=== PATIENT | male | born 1990 | race Caucasian/White ===

== ENCOUNTER 2017-02-15 10:50 | Day surgery (SDC) | payer OTHER ==
[~2017-02-15 10:50] MED LIST: Buffered Lidocaine 0.9% SYRIN* 5 ML/SYR SYRINGE INTRADERM ONE
[2017-02-15] MEDS ORDERED: Buffered Lidocaine 0.9% SYRIN* 5 ML/SYR SYRINGE ONE (11:01)
[2017-02-15] MEDS ORDERED: ceFAZolin 2 GM PREMIX(*) 2 GM/50 ML BAG IVPB ONE (11:02)
[2017-02-15] MEDS ORDERED: Lidocaine 1% MPF wEPI 200,000* 30 ML SDV ONE (14:08)
[2017-02-15] MEDS ORDERED: Bupivacaine 0.25% EPI 200,000* 30 ML SDV ONE (14:09)
[2017-02-15] MEDS ORDERED: Mineral Oil Sterile, TOPICAL* 25 ML BTL ONE (14:09)
[2017-02-15] MEDS ORDERED: Methylene Blue 1% (ANTIDOTE)* 10 MG/ML 1 ML SDV VIAL IVPB ONE (14:09)
[2017-02-15] MEDS ORDERED: fentaNYL* 50 MCG/ML 2 ML VIAL (100 MCG VIAL) ONE (14:22)
[2017-02-15] MEDS ORDERED: Midazolam* 1 MG/ML 5 ML VIAL (5 MG) ONE (14:27)
[2017-02-15] MEDS ORDERED: Propofol* 10 MG/ML 20 ML BTL IV PUSH ONE ×2 (16:15→16:19)
[2017-02-15] MEDS ORDERED: Lidocaine 2% PF * 5 ML VIAL ONE (16:15)
[2017-02-15 18:00] VITALS: BP 90/57
--- NOTE | 2017-02-16 13:53 | OP ---
CC: Dr. Palacios * DATE OF OPERATION: 02/15/17 - [facility] DATE OF : 89 SURGEON: Paul Montoya MD., and Dimitrios Palacios MD. SCAFFOLD WORKER: Mallika Cleaning NP. ANESTHESIOLOGIST: Kwaku Koch DO ANESTHESIA: Local, MAC. PRE-OP DIAGNOSIS: Mass, right parietal scalp. POST-OP DIAGNOSIS: Bony mass, right calvarium. OPERATIVE PROCEDURE: ESTIMATED BLOOD LOSS: Minimal. SPECIMENS: Bony mass, right calvarium. DRAINS: None. COMPLICATIONS: None. INDICATIONS FOR OPERATION: The patient is a 26-year-old white male who complains of a greater than 5-year history of a firm lump on his right parietal scalp area. Denies any recent changes in the lump. A CT scan was performed at [facility] on 02/21/14, and the report read no intracranial abnormalities, calcified superficial scalp nodule without underlying skull abnormalities. After discussing the treatment alternatives, possible benefits, and risks in detail with the patient, he elected to proceed at this time with excision of the mass. DESCRIPTION OF PROCEDURE: The patient was taken to the operating room and placed in the supine position. Hair on the right parietal scalp immediately overlying the mass was clipped. The area was prepped with Betadine solution and draped sterilely. The scalp was locally infiltrated around the area with 0.125% Marcaine, 0.5% lidocaine with epinephrine 1:200,000 solution. Linear incision was made through the scalp overlying the mass down through the galea. A hard, white, fixed mass was identified and subperiosteal dissection performed to expose the entire mass. The base of the mass was more narrow than the widest extent of the mass and periosteal elevators could be placed under the edges of the mass in these areas, but the mass was firmly fixed to the outer table of the calvarium. An intraoperative neurosurgical consultation was obtained with Dr. Dimitrios Palacios. He reviewed the CT scan and examined the area through the wound, and he was in agreement with removing the bony mass by using an osteotome. An elevator was placed under overriding edges of the mass anteriorly and was tapped lightly with a mallet and the majority of the mass was able to be removed in this manner in one piece. Specimen was sent in formalin for routine pathologic study. There was, however, a remaining protruding area of cortical and cancellous bone protruding above the normal appearing calvarium and Dr. Palacios scrubbed into the case at this point and burred this down with an oval shaped keyon using the [employer] power drill, using saline irrigation to control heat. This was burred down to make the area smooth in contour relative to the normal surrounding calvarium. There were a few small punctate areas of bleeding from the bone following this and this was controlled with bone wax. Dr. Palacios then scrubbed out of the case. Hemostasis was noted to be excellent. The wound was irrigated with copious saline solution. The scalp was then closed in multiple layers using interrupted sutures of 3-0 Vicryl in the galea. The scalp was then closed with running 4-0 Prolene. The area was then dressed with Xeroform gauze, fluff gauze, and then a circumferential head wrap dressing applied and secured with tape. The patient tolerated the procedure well. There were no complications. All counts were reported as correct at the end of the procedure. The patient was taken to the recovery area in stable postoperative condition. [id number]/[facility] #: [id number] [facility]CTORS HOSPITALMahesh
== END 2017-02-15 18:09 | disposition home or self-care (01) ==
LOC: OR 10:50
PROVIDERS: ATTEND Plastic Surgery
DX: M85.08 Fibrous dysplasia (monostotic), other site (principal); F17.210 Nicotine dependence, cigarettes, uncomplicated
CPT/HCPCS: 88305; 88311; A9270-GY; J0690; J2001; J2250; J2704; J3010

== ENCOUNTER 2019-10-20 11:53 | Inpatient (IN) | payer OTHER ==
[2019-10-20] MEDS ORDERED: Lidocaine 1% INJ* 10 MG/ML 30 ML SDV INJ ONE (11:55)
--- NOTE | 2019-10-20 12:02 | ED ---
Respiratory - HPI Summary HPI Summary: Patient is a 29 y/o M presenting to the ED for a chief complaint of right-sided chest pain and shortness of breath that began on 10/18/19. Patient states that on 10/18/19, he woke up feeling uncomfortable and went to walk to a coffee shop. While walking to the coffee shop, the chest pain worsened. Patient relaxed during the day after returning home from the coffee shop. Patient played soccer on 10/18/19 without any complaints. He denies any trauma or cough. Patient was seen at [facility] and had a chest x-ray that showed a right-sided pneumothorax so he was sent to [facility] for further assessment. Patient admits tobacco use. - History of Current Complaint Chief Complaint: EDShortnessOfBreath Stated Complaint: CHEST PAIN Time Seen by Provider: 10/20/19 11:55 Hx Obtained From: Patient Onset/Duration: Sudden Onset, Lasting Days, Still Present Timing: Constant Initial Severity: Moderate Current Severity: None Pain Intensity: 0 Character: Dyspnea at Rest Sputum Amount: None Aggravating Factor(s): Nothing Alleviating Factor(s): Nothing Associated Signs and Symptoms: SOB, Chest Pain - Right-sided - Allergy/Home Medications Allergies/Adverse Reactions: Allergies Allergy/AdvReac Type Severity Reaction Status Date / Time Pertussis Vaccines Allergy Fever Verified 10/20/19 11:58 Home Medications: Home Medications Ibuprofen 200 MG 2 tab PO Q4HR PRN 01/25/17 [History Confirmed 02/15/17] PMH/Surg Hx/FS Hx/Imm Hx Previously Healthy: Yes Sensory History: Denies: Hx Cataracts, Hx Contacts or Glasses, Hx Glaucoma, Hx Legally Blind, Hx Deafness, Hx Hearing Aid Opthamlomology History: Denies: Hx Cataracts, Hx Contacts or Glasses, Hx Glaucoma, Hx Legally Blind EENT History: Denies: Hx Deafness Neurological History: Reports: Hx Migraine - in high school, resolved Psychiatric History: Reports: Hx Anxiety - has had therapy but no medication - Surgical History Surgical History: Yes Surgery Procedure, Year, and Place: wisdom teeth. root canal,. stitches pts mouth when he was 4 yrs old, fall/injury Hx Anesthesia Reactions: No Infectious Disease History: No Infectious Disease History: Denies: Traveled Outside the [place] in Last 30 Days - Family History Known Family History: Negative: Diabetes - Social History Occupation: Student Lives: Alone Alcohol Use: Weekly Alcohol Amount: 2-3 beers, 2-3 x a week Hx Substance Use: Yes Substance Use Type: Reports: Marijuana Substance Use Comment - Amount & Last Used: 3 x a week - marijuana Hx Tobacco Use: Yes Smoking Status (MU): Heavy Every Day Tobacco Smoker Amount Used/How Often: currently smokes 15/cigg a day Review of Systems Positive: Chest Pain - Right-sided Positive: Shortness Of Breath. Negative: Cough All Other Systems Reviewed And Are Negative: Yes Physical Exam - Summary Physical Exam Summary: Constitutional: Well-developed, Well-nourished, Alert. (-) Distressed Skin: Warm, Dry HENT: Normocephalic; Atraumatic Eyes: Conjunctiva normal Neck: Musculoskeletal ROM normal neck. (-) JVD, (-) Stridor, (-) Nuchal rigidity Cardio: Rhythm regular, rate normal, Heart sounds normal; Intact distal pulses; Radial pulses are 2+ and symmetric. (-) Murmur Pulmonary/Chest wall: Effort normal. (-) Respiratory distress, (-) Wheezes, (-) Rales. Decreased breath sounds on the right. Abd: Soft, (-) tenderness, (-) Distension, (-) Guarding, (-) Rebound Musculoskeletal: (-) Edema Lymph: (-) Cervical adenopathy Neuro: Alert, Oriented x3 Psych: Mood and affect Normal Triage Information Reviewed: Yes Vital Signs On Initial Exam: Initial Vitals Temp Pulse Resp BP Pulse Ox 97.5 F 86 18 127/78 96 10/20/19 11:55 10/20/19 11:55 10/20/19 11:55 10/20/19 11:55 10/20/19 11:55 Vital Signs Reviewed: Yes Procedures - Sedation Patient Received Moderate/Deep Sedation with Procedure: No - Chest Tube Right Chest Tube Location: mid axillary line Size of Yakut Tube (cm): 8 Anesthesia: 1% Lidocaine Hartley of Air Phelps: Yes Number of Attempts: 1 Time of Successful Intubation: 01:00 Diagnostics - Vital Signs Vital Signs Temp Pulse Resp BP Pulse Ox 10/20/19 11:55 97.5 F 86 18 127/78 96 - Laboratory Lab Statement: Any lab studies that have been ordered have been reviewed, and results considered in the medical decision making process. - Radiology Chest X-ray 1 Radiology Interpretation Completed By: Radiologist Summary of Radiographic Findings: Chest X-ray IMPRESSION: LARGE RIGHT PNEUMOTHORAX. LEFT LUNG FIELD IS CLEAR. Reviewed by Dr. Barroso. Chest X-ray 2 Radiology Interpretation Completed By: Radiologist Summary of Radiographic Findings: Chest X-ray 2 IMPRESSION: 1. Interval expansion of the right lung with only a small residual pneumothorax status post placement of a right pleural pigtail catheter. Reviewed by Dr. Barroso. Chest X-ray Radiology Interpretation Completed By: Radiologist Summary of Radiographic Findings: Chest X-ray IMPRESSION: LARGE RIGHT PNEUMOTHORAX. LEFT LUNG FIELD IS CLEAR. Reviewed by Dr. Barroso. Re-Evaluation - Re-Evaluation First Eval Re-Evaluation Time: 01:30 Change: Improved - post CT XR shows near resolution of PTX. TBA surgery. On LIS Disposition - Course Course Of Treatment: 29 y/o M presenting with spontaneous right-sided pneumothorax. Patient on 2 L of oxygen nasal cannula, sat 96%. Plan for pigtail chest tube, admit for observation - Diagnoses Provider Diagnoses: Pneumothorax on right - Physician Notifications Discussed Care Of Patient With: Elmer Mccray - At 13:30, Dr. Elmer Mccray reviewed the patients case and agrees to admit the patient [place] [facility] [place] diagnosis of pneumothor[place]. Time Discussed With Above Provider: 13:30 Instructed by Provider To: Admit As Observation Discharge ED - Sign-Out/Discharge Documenting (check all that apply): Patient Departure - Admit - Discharge Plan Condition: Stable Disposition: ADMITTED TO [facility] Referrals: [facility] - Natanael LANDEROS [Primary Care Provider] - - Billing Disposition and Condition Condition: STABLE Disposition: Admitted to [facility] - Attestation Statements Document Initiated by Shivam: Yes Documenting Scribe: Ivonne Zamora Provider For Whom Shivam is Documenting (Include Credential): MD James Nicholsonibe Attestation: Ivonne Lamar scribed for Elba Barroso MD on 10/20/19 at 1358. Scribe Documentation Reviewed: Yes Provider Attestation: The documentation as recorded by the Ivonne salter accurately reflects the service I personally performed and the decisions made by Elba cadet MD Status of Scribe Document: Viewed
[2019-10-20] MEDS ORDERED: fentaNYL* 50 MCG/ML 2 ML VIAL (100 MCG VIAL) IV SLOW PU ONE (12:14)
[2019-10-20] MEDS ORDERED: Ondansetron INJ* 2 MG/ML VIAL IV ONE (12:14)
[2019-10-20] MEDS ORDERED: HYDROmorphone INJ* 0.5 MG/0.5 ML SYRINGE IV SLOW PU PRN (14:16)
[2019-10-20] MEDS ORDERED: Acetaminophen TAB* 325 MG PO PRN (14:16)
[2019-10-20] MEDS ORDERED: oxyCODONE/Acetamin 5/325 MG* TAB PO PRN (14:16)
[2019-10-20] MEDS ORDERED: Ondansetron INJ* 2 MG/ML VIAL IV PRN (14:24)
[2019-10-20] MEDS ORDERED: HYDROmorphone INJ1* 1 MG/ML SYRINGE IV SLOW PU PRN (14:24)
[2019-10-20] MEDS ORDERED: NS 0.9% 1000 ML** 1,000 ML IV SCH (14:30)
[2019-10-20] MEDS: Ketorolac INJ* 30 MG/ML 1 ML VIAL IV SCH ×2 (14:47→21:05)
--- NOTE | 2019-10-20 21:01 | HP ---
CC: [facility] * ADMISSION HISTORY AND PHYSICAL: DATE OF ADMISSION: 10/20/19 ATTENDING SURGEON: Dr. Elmer Mccray.* (DICTATED BY NEGIN CEDEÑO) CHIEF COMPLAINT: Spontaneous right pneumothorax. HISTORY OF PRESENT ILLNESS: This is a generally healthy 29-year-old male who began on Sunday noted discomfort in the right chest with associated shortness of breath. This waxed and waned depending on his activity and position (he noted more discomfort when he was lying flat). He did feel somewhat better on Sunday, but then around midnight felt worse again related to position. He had difficulty sleeping. He presented to the health center at [facility] and chest x- ray was obtained and he was referred to the emergency department. Since that time, a chest x-ray did show a large right-sided pneumothorax and a small right- sided chest tube was placed with near complete resolution of the pneumothorax. At the present time, he states that he has some discomfort, but denies shortness of breath. He has not had any other prior similar episodes. He was not feeling well this past and did present to the [facility] at which time the chest x-ray was apparently normal. He also reports a panic attack about a week ago for which he did not seek medical attention. There was no associated shortness of breath. PAST MEDICAL HISTORY: Remarkable for occasional GERD and insomnia. 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 Montoya. Dental surgeries. No reported surgical or anesthesia complications. CURRENT MEDICATIONS: He takes no prescription medications. He does use: 1. Nicotine gum p.r.n. 2. Melatonin at h.s. p.r.n. 3. Tums p.r.n. ALLERGIES: Drug allergies none. (He did experience a high fever as a child secondary to pertussis vaccine). FAMILY HISTORY: Negative for anesthesia problems, bleeding or clotting disorders. SOCIAL HISTORY: The patient lives with a roommate. 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 He is a former smoker who quit in March 2018. He drinks on average 2 drinks per week and uses marijuana once every one to two weeks. REVIEW OF SYSTEMS: General: As above per HPI. Weight has been stable. No other recent constitutional symptoms. HEENT: No problems reported. Cardiovascular: No chest pain, palpitations, history of hypertension or heart murmur other than noted above. Respiratory: As noted above, no history of asthma, chronic cough or shortness of breath. GI: Occasional GERD symptoms. He has had prior episodes of gastroenteritis, but no problems recently. : No problems reported. Endocrine: No diabetes or thyroid dysfunction. Neuro/ psych: History of anxiety and depression. PHYSICAL EXAMINATION GENERAL: Well-nourished, well-developed male in no acute distress. He appears comfortable lying on the ED stretcher. Nasal cannula in place as well as a right- sided chest tube. VITAL SIGNS: Height 5 feet 11 inches, weight 166 pounds, temperature 97.5, blood pressure 106/69, pulse 74, respirations 12, O2 saturation 99% on supplemental 2 L nasal cannula. HEENT: Pupils are equal, round and reactive. EOMs intact. No conjunctival pallor. Oropharynx: Teeth in good repair. No intraoral lesions. NECK: No lymphadenopathy, thyromegaly or masses. LUNGS: Clear to auscultation though decreased breath sounds at the right apex. Right-sided chest tube (appears to be anterior axillary line) to the Atrium [place] container showing intermittent small air leak. HEART: Regular rate and rhythm. No murmur noted. ABDOMEN: Soft, nontender to palpation. No palpable masses or organomegaly. GENITALIA: Not done. RECTAL: Not done. EXTREMITIES: No edema. He has a small abrasion in the left anterior ankle secondary to recent soccer injury. NEUROLOGICAL: Grossly intact. SKIN: Warm and dry. No suspicious rashes or lesions. LABORATORY DATA: No recent labs immediately available. Chest x-ray as personally reviewed shows a large right-sided pneumothorax and subsequent x-ray post placement of a chest tube shows near resolution of the right-sided pneumothorax. IMPRESSION: Spontaneous right pneumothorax, improved after chest tube placement now with intermittent air leak. PLAN: Overnight observation with a chest tube to wall suction. We will reassess in the morning and if air leak has ceased we will place him to water seal and obtain repeat chest x-ray. He understands the plan and also the potential need for surgical intervention and therefore possible transfer in the event that the air leak does not seal. LORAINE HUSAIN, NEGIN [id number]/[facility] #: [id number] IGOR
[2019-10-21] MEDS: Ketorolac INJ* 30 MG/ML 1 ML VIAL IV SCH ×4 (03:09→19:19)
--- NOTE | 2019-10-21 10:40 | PN ---
Progress Note - Progress Note Date of Service: 10/21/19 Note: S: No c/o, other than some increased discomfort with certain position changes. Denies SOB. O: Vital Signs - 8 hr 10/21/19 10/21/19 10/21/19 04:18 07:33 07:41 Temperature 97.5 F 98.1 F Pulse Rate 49 47 Respiratory 18 16 Rate Blood Pressure 94/50 89/47 100/50 (mmHg) O2 Sat by Pulse 97 99 Oximetry 10/21/19 07:52 Temperature Pulse Rate Respiratory 16 Rate Blood Pressure (mmHg) O2 Sat by Pulse Oximetry Intake and Output Last 24 Hours 10/19/19 10/20/19 10/21/19 10/22/19 06:59 06:59 06:59 06:59 Intake Total 680 1016 Output Total 400 Balance 280 1016 Weight 166 lb Intake: IV Fluids 1016 NS (0.9%) 1016 Oral 680 Output: Urine 400 Other: Estimated Void Medium Gen: appears comfortable; NAD Heart: reg Lungs: clear, though decreased overall on right; no subcut air xray: shows moderate right ptx A: right ptx, with interval increase P: chest tube dressing was taken down, revealing a kink in the tubing. This was repositioned and redressed w/ tegaderm, with resultant moderate air leak noted at Atrium container. Continue wall suction for now. Will d/w Dr. Mccray and decide re: repeat film later today.
[2019-10-22] MEDS: Ketorolac INJ* 30 MG/ML 1 ML VIAL IV SCH ×2 (02:06→07:58)
[2019-10-22] MEDS ORDERED: Ibuprofen TAB* 600 MG PO PRN (12:10)
--- NOTE | 2019-10-22 15:59 | PRO ---
CC: [facility] * DATE OF PROCEDURE: 10/22/19 - ROOM #341 INDICATIONS: Mr. Ross is a 29-year-old gentleman who was admitted through the emergency room to our service with spontaneous right-sided pneumothorax, who underwent tube thoracostomy through the emergency department and admitted to our service. The patient had some functional difficulties with the tubing and today it was noted to be dislodged with persistent pneumothorax on the right. For this reason, I recommended, after discussion with Dr. Mccray who knew the patient's story better, that he should undergo a replacement of right- sided chest tube. I spent a fair amount of time over 20 minutes discussing this with the family, stating that I believe that the first tube served the purpose of evacuating the air from the right chest; however, upon dislodgement persistent pneumothorax was revealed. I outlined details of the procedure, going over the risks, benefits, and alternatives to right tube thoracostomy and they agreed. Their plan was to take the patient to another institution and we spent time talking about transfer versus discharge and follow up at an outside institution. They preferred this and I explained that I felt it would be best to do an 8-Mexican pneumothorax kit into the right side and the patient agreed. On physical exam, well appearing, in no apparent distress, mildly tachypneic, but O2 sats 98% on room air and afebrile with heart rate in the 80s. Decreased breath sounds on the right. No skin lesions. Chest tube at the right axilla in place with sutures. DESCRIPTION OF PROCEDURE: The patient was prepped and draped in standard surgical fashion and time-out performed. After injection of lidocaine over the third rib, we then entered into the second intercostal space and placed an 8-Mexican Heimlich valve tubing appropriately up to the hub. A fair amount of gas evacuated and I sutured it to the skin with the given silk suture. We then applied sterile dressing and hooked up to the Heimlich valve and then onto the Pleur-evac. Dressing applied and the suture was cut at the previous chest tube and this was removed and a bandage placed. The patient tolerated the procedure well. PLAN: Plan is for chest x-ray in an hour to see if the lung has come up. If it has come up mostly, then we could look towards discharge home and to follow up as an outpatient in our offices. Understanding that the patient will likely get in a car with his father and go to the [facility] where they have family members working, this is not an unreasonable plan. They also understand that if the lung is not showing some significant improvement, then we will look towards possible chest tube placement or additional observation overnight. [id number]/[facility] #: [id number] MTDD
--- NOTE | 2019-10-22 16:06 | DS ---
Admit date: 10/20/2019 Discharge date: 10/22/2019 Admit diagnosis:Spontaneous right pneumothorax Discharge diagnosis: Spontaneous right pneumothorax Condition at discharge: Stable Procedures performed: Right thoracotomy and chest tube placement x 2 PEX General: Alert, in NAD. Integumentary: No rashes, jaundice. HEENT: Oropharynx clear. Trachea midline. PERRLA. Heart: RRR. No MRG. Lungs: CTAB. No WRR. ABD: BS present. Soft, nontender and nondistended. Extremities: Calves soft and nontender. Distal pulses intact bilaterally. No edema. Hospital course: Presented on 10/20/2019 to ED with shortness of breath. Chest XR identified a right pneumothorax. A right chest tube was placed and subsequent chest XR showed improvement. He was admitted to the surgical floor, chest tube placed on suction. On the next day, 10/21/2019, repeat chest XR demonstrated a moderate right PTX with interval increase. Moderate air leak noted in Atrium container. Tube was repositioned and suction was continued. A repeat XR showed improvement. On 10/22/2019, a chest XR demonstrated some increase in PTX. A new right chest tube was placed by Dr. Downing without issue and the previous one was taken out. Repeat chest XR showed significant improvement. At time of discharge, he was feeling well and without SOB. Dr. Downing had an extensive discussion on proper course of action following discharge. Discharged with chest tube and heimlich valve. Proper instruction given regarding chest tube. He is wanting to visit the [facility] for further assessment of his condition. Chest tube will likely be removed at [facility]. The patient was given instruction regarding diet, medications, activity, and follow up. All questions were answered. Discharged home in stable condition on 10/22/2019.
[2019-10-22 16:09] VITALS: BP 115/61
--- NOTE | 2019-10-22 19:06 | PN ---
Progress Note - Progress Note Date of Service: 10/22/19 Note: Surgery Progress: S: patient seen ~ 1730. No new c/o. Chest xray post new tube placement showed resolution of the previous right ptx. I d/c'd the suction from the tube at ~ 1740 and ordered a repeat film in 1 hr. There was no evidence of active airleak at that time. O: repeat cxray at 1840 (not officially read) shows no obvious recurrent ptx A/P: discussed signs and sx that would necessitate return to the ED, including increased shortness of breath, chest pain, lightheadedness, etc. Patient and his father expressed understanding. He is discharged.
== END 2019-10-22 19:00 | disposition home or self-care (01) | DRG 201 ==
LOC: ED 11:53 → MEDTELE 14:16 → SSU 15:40
PROVIDERS: ADMIT Hospitalist; ATTEND Surgery
PROC: 0W9930Z Drainage of Right Pleural Cavity with Drainage Device, Percutaneous Approach (ICD-10-PCS; principal; 2019-10-20)
PROC: 0W9930Z Drainage of Right Pleural Cavity with Drainage Device, Percutaneous Approach (ICD-10-PCS; 2019-10-22)
DX: J93.11 Primary spontaneous pneumothorax (principal); K21.9 Gastro-esophageal reflux disease without esophagitis; G47.00 Insomnia, unspecified; Z87.891 Personal history of nicotine dependence
CPT/HCPCS: 71045; 71048; 96374; 96375; 99284; A9270-GY; J1885; J2405; J3010

== ENCOUNTER 2020-03-15 03:11 | Inpatient (IN) ==
[2020-03-15 04:04] LABS: Urine Appearance Clear; Urine Bilirubin Negative (Negative); Urine Blood Negative (Negative); Urine Color Yellow; Urine Glucose Negative (Negative); Urine Ketones Negative (Negative); Urine Nitrite Negative (Negative); Urine Protein Negative (Negative); Urine Specific Gravity 1.024 (1.010-1.030); Urine Urobilinogen Negative (Negative)
[2020-03-15 04:17] LABS: ABS Basophils 0.1 10^3/ul (0-0.2); ABS Eosinophils 0.1 10^3/ul (0-0.6); ABS Lymphocytes 1.6 10^3/ul (1.0-4.8); ABS Monocytes 0.8 10^3/ul (0-0.8); Eosinophil % 0.9 %; Hematocrit 48 % (42-52); Hemoglobin 16.9 g/dL (14.0-18.0); Lymphocyte % 16.6 %; Mean Corpuscular HGB Conc 35 g/dL (31-36); Mean Corpuscular Hemoglobin 30 pg (27-31); Mean Corpuscular Volume 87 fL (80-94); Mean Platelet Volume 8.9 fL (7.4-10.4); Nucleated Red Blood Cells % 0.1; Platelet Count 240 10^3/uL (150-450); Red Blood Count 5.58 10^6 /uL (4.18-5.48); Red Cell Distribution Width 13 % (10-15); White Blood Count 9.9 10^3/uL (3.5-10.8)
[2020-03-15 04:19] LABS: ALT 19 U/L (7-52); AST 15 U/L (13-39); Albumin 4.8 g/dL (3.2-5.2); Albumin/Globulin Ratio 1.9 (1-3); Alkaline Phosphatase 55 U/L (34-104); Anion Gap 11 mmol/L (2-11); BUN/Creatinine Ratio 13.8 (8-20); Blood Urea Nitrogen 12 mg/dL (6-24); CO2 Carbon Dioxide 23 mmol/L (22-32); Calcium 9.7 mg/dL (8.6-10.3); Chloride 105 mmol/L (101-111); EGFR African American 127.4 (>60); EGFR Non-African American 105.3 (>60); Globulin 2.5 g/dL (2-4); Glucose 84 mg/dL (70-100); Potassium 3.3 mmol/L (3.5-5.0); Sodium 139 mmol/L (135-145); Total Protein 7.3 g/dL (6.4-8.9)
[2020-03-15 04:24] LABS: Urine Benzodiazepine Screen None Detected (None Detect); Urine Opiates Screen None Detected (None Detect)
[2020-03-15 04:35] LABS: Acetaminophen < 15 mcg/mL; Alcohol, S 11 mg/dL (<10); Salicylate < 2.50 mg/dL (<30)
[2020-03-15] MEDS ORDERED: Al Hydrox/Mg Hydrox/Simet LIQ 30 ML UDC PO PRN (10:05)
[2020-03-15] MEDS: Vitamin THERAPEUTIC TAB PO SCH (12:10)
[2020-03-15] MEDS: Nicotine GUM 2MG FRUIT FLAVOR PO PRN ×2 (15:34→18:21)
[2020-03-16] MEDS: Vitamin THERAPEUTIC TAB PO SCH (09:54)
[2020-03-16] MEDS: FluvoxaMINE 50 mg TAB (NF) PO SCH (09:54)
[2020-03-16] MEDS: Nicotine GUM 2MG FRUIT FLAVOR PO PRN ×2 (12:30→18:24)
[2020-03-17 07:31] LABS: HDL Cholesterol 28.3 mg/dL
[2020-03-17] MEDS: Vitamin THERAPEUTIC TAB PO SCH (08:51)
[2020-03-17] MEDS: FluvoxaMINE 50 mg TAB (NF) PO SCH (08:51)
[2020-03-17] MEDS: Nicotine GUM 2MG FRUIT FLAVOR PO PRN ×2 (13:56→16:15)
[2020-03-18] MEDS: Vitamin THERAPEUTIC TAB PO SCH (08:41)
[2020-03-18] MEDS: FluvoxaMINE 50 mg TAB (NF) PO SCH (08:41)
[2020-03-18 09:35] VITALS: BP 128/66
== END 2020-03-18 09:00 | disposition home or self-care (01) | DRG 881 ==
LOC: ED 03:11 → BSU 08:24
PROVIDERS: ADMIT Psychiatry & Neurology Psychiatry; ATTEND Psychiatry & Neurology Psychiatry